=== PATIENT | male | born 1935 ===

== ENCOUNTER 2022-11-19 06:42 | Day surgery (SDC) | payer OTHER ==
[~2022-11-19] VITALS: Ht 175.3 cm; Wt 71.7 kg
[~2022-11-19 06:42] MED LIST: CRESTOR10 MG PO; FINASTERIDE5 MG PO; LEVO-T88 MCG PO; NORVASC5 MG PO; TAMS0.4C PO
[2022-11-19] MEDS ORDERED: OXYC1TAB9 PO (13:51)
== END 2022-11-19 19:55 | disposition home or self-care (01) ==
LOC: CIR.AMB 06:42
PROVIDERS: ATTEND Surgery
DX: K60.3 Anal fistula (principal); K62.89 Other specified diseases of anus and rectum; Z20.822 Contact with and (suspected) exposure to COVID-19; I10 Essential (primary) hypertension; E03.9 Hypothyroidism, unspecified

== ENCOUNTER → 2023-03-31 | Day surgery (SDC) | payer OTHER ==
[2023-03-21 12:09] LABS: URINE APPEARANCE Clear; URINE BILIRRUBIN Negative (NEGATIVE); URINE BLOOD Negative; URINE COLOR Yellow; URINE GLUCOSE Negative (NEGATIVE); URINE LEUKOCYTE Negative; URINE NITRATE Negative; URINE PROTEIN Negative (NEGATIVE); URINE UROBILINOGEN 0.2 E.U./dl
[2023-03-21 12:13] LABS: URINE RBC 2.8 uL (0.0-20.8)
[2023-03-21 12:18] LABS: URINE BACTERIA 1.2 uL (0.0-1933); URINE EPITHELIAL CELLS 0.3 uL (0.0-38.8)
[2023-03-21 12:23] LABS: HEMATOCRIT 36.4 % (39.0-48.0); HEMOGLOBIN 12.7 g/dL (13-16.00); MEAN CELL VOLUME 93.4 fL (80.0-100.00); MEAN CORPUSCULAR HEMOGLOBIN 32.6 pg (27.00-32.0); MEAN CORPUSCULAR HGB CONC 34.9 g/dl (32.0-36.0); PLATELET COUNT 177 K/uL (150-450); RED CELL DISTRIBUTION WIDTH 13.1 % (11.5-14.5)
[2023-03-21 12:34] LABS: INR 0.97; PARTIAL THROMBOPLASTIN TIME 23.8 SECONDS (22.0-34.0); PROTHROMBIN TIME 10.2 SECONDS (9.0-11.5)
[2023-03-21 12:36] LABS: BILIRUBIN TOTAL 0.69 mg/dL (0.3-1.2); CALCIUM 10.2 mg/dL (8.5-10.1); CREATININE SERUM 0.98 mg/dL (0.70-1.30); GFR 72.69; GLOBULINA 3.3 G/DL (2.4-3.5); POTASSIUM 4.11 mEq/L (3.5-5.1); TOTAL PROTEIN 7.3 gm/dL (6.4-8.2)
[~2023-03-31] MED LIST changes: +OXYC1TAB9 PO
== END | disposition home or self-care (01) ==
LOC: ADM 03-21 10:15 → CIR.AMB 09:30
PROVIDERS: ATTEND Surgery
DX: K60.3 Anal fistula (principal); K62.89 Other specified diseases of anus and rectum; I10 Essential (primary) hypertension; Z20.822 Contact with and (suspected) exposure to COVID-19; E78.5 Hyperlipidemia, unspecified